=== PATIENT | female | born 1955 | race African-American/Black ===

== ENCOUNTER 2018-12-12 18:11 | Emergency (ER) | payer MEDICARE, MEDICAID ==
[~2018-12-12] VITALS: Ht 157.5 cm; Wt 76.0 kg
[~2018-12-12 18:11] MED LIST: GABA-529 PO; HYDR-519 PO; METF-414 PO
[2018-12-12 20:27] LABS: CHLORIDE 111 mEq/L (98-107)
[2018-12-12 20:28] LABS: BASOPHILS % 1.3 % (0.0-2.0); EOSINOPHILS % 0.4 % (0.0-5.0); HEMATOCRIT. 43.6 % (36.0-48.0); HEMOGLOBIN. 14.4 g/dL (12.0-16.0); MEAN CORPUSCULAR HEMOGLOBIN 29.7 pg (28.0-32.0); MEAN CORPUSCULAR VOLUME 90.2 fL (81.0-99.0); MEAN PLATELET VOLUME 9.8 fl (7.4-10.4); MONOCYTES % 7.5 % (2.0-8.0); NEUTROPHILS % 44.8 % (40.0-76.0); PLATELET 227 x1000/uL (130-400); RED BLOOD CELL COUNT 4.84 mill/uL (4.2-5.4); RED CELL DISTRIBUTION WIDTH 14.3 % (11.6-14.6)
[2018-12-12 20:37] LABS: CLARITY URINE CLOUDY (CLEAR); COLOR URINE YELLOW (YELLOW); KETONES URINE TRACE (NEGATIVE); LEUKOCYTE ESTERASE URINE 1+ (NEGATIVE); NITRITE URINE NEGATIVE (NEGATIVE); OCCULT BLOOD URINE NEGATIVE (NEGATIVE); PH URINE 5.5 (4.5-8.0); PROTEIN URINE NEGATIVE (NEGATIVE); SPECIFIC GRAVITY URINE 1.023 (1.005-1.030)
[2018-12-12 20:49] LABS: *AMPHETAMINES SCREEN URINE NEGATIVE (NEGATIVE); *BARBITURATES SCREEN URINE NEGATIVE (NEGATIVE); *BENZODIAZEPINES SCREEN URINE NEGATIVE (NEGATIVE); *COCAINE SCREEN URINE NEGATIVE (NEGATIVE); METHADONE URINE SCREEN NEGATIVE (NEGATIVE); OPIATES URINE SCREEN PRESUMTIVE POSITIVE (NEGATIVE)
[2018-12-12 20:50] LABS: CANNABINOID URINE SCREEN NEGATIVE (NEGATIVE); PHENCYCLIDINE URINE SCREEN NEGATIVE (NEGATIVE)
[2018-12-12] MEDS ORDERED: SULFAMETHOXAZOLE/TRIMETHOPRIM 800/160MG TABLET PO ONE (22:45)
[2018-12-12 23:25] VITALS: BP 142/80
== END 2018-12-12 23:29 | disposition home or self-care (01) ==
LOC: ER 18:11
DX: R53.1 Weakness (principal); M54.2 Cervicalgia; M79.602 Pain in left arm; I48.91 Unspecified atrial fibrillation; E11.9 Type 2 diabetes mellitus without complications; Z87.891 Personal history of nicotine dependence; Z90.710 Acquired absence of both cervix and uterus; Z88.6 Allergy status to analgesic agent; Z88.5 Allergy status to narcotic agent
CPT/HCPCS: 36415; 71045; 72040; 72100; 80305; 82962; 83605; 83880; 84484; 93005; 99284

== ENCOUNTER 2019-08-27 20:20 | Inpatient (IN) | payer MEDICARE, MEDICAID ==
[~2019-08-27] VITALS: Ht 157.5 cm; Wt 75.3 kg
[2019-08-27] MEDS ORDERED: SODIUM CHLORIDE 0.9% 1000ML BAG (SEPSIS BOLUS) IV ONE (22:00)
[2019-08-27] MEDS ORDERED: ONDANSETRON HCL 4MG/2ML INJ IV ONE (22:00)
[2019-08-27 22:32] LABS: BASOPHILS % 0.6 % (0.0-2.0); EOSINOPHILS % 0.1 % (0.0-5.0); HEMATOCRIT. 45.8 % (36.0-48.0); HEMOGLOBIN. 15.3 g/dL (12.0-16.0); LYMPHOCYTES % 35.3 % (20.0-50.0); MEAN CORPUSCULAR HEMOGLOBIN 29.8 pg (28.0-32.0); MEAN CORPUSCULAR VOLUME 89.4 fL (81.0-99.0); MEAN PLATELET VOLUME 8.9 fl (7.4-10.4); MONOCYTES % 14.1 % (2.0-8.0); NEUTROPHILS % 49.9 % (40.0-76.0); PLATELET 197 x1000/uL (130-400); RED BLOOD CELL COUNT 5.13 mill/uL (4.2-5.4); RED CELL DISTRIBUTION WIDTH 14.3 % (11.6-14.6)
[2019-08-27 22:35] LABS: CHLORIDE 107 mEq/L (98-107)
[2019-08-27 22:37] LABS: INR 0.9; PARTIAL THROMBOPLASTIN TIME 31.5 sec (23.4-31.0); PROTHROMBIN TIME 9.4 sec (9.6-11.0)
[2019-08-27] MEDS ORDERED: LEVOFLOXACIN 750MG PREMIX 150 ML IV ONE (23:30)
[2019-08-27] MEDS ORDERED: NITROGLYCERIN 0.4MG TABLET SL SL PRN (23:30)
[2019-08-28] VITALS (7 sets, daily range): BP systolic 97–144; BP diastolic 31–92
[2019-08-28 02:07] LABS: CLARITY URINE CLEAR (CLEAR); COLOR URINE YELLOW (YELLOW); KETONES URINE TRACE (NEGATIVE); LEUKOCYTE ESTERASE URINE 1+ (NEGATIVE); NITRITE URINE NEGATIVE (NEGATIVE); OCCULT BLOOD URINE NEGATIVE (NEGATIVE); PH URINE 5.5 (4.5-8.0); PROTEIN URINE NEGATIVE (NEGATIVE); SPECIFIC GRAVITY URINE 1.024 (1.005-1.030)
[2019-08-28] MEDS ORDERED: DIAZ5TAB PO (02:21)
[2019-08-28] MEDS ORDERED: IPRATROPIUM/ALBUTEROL 0.5-3(2.5)MG/3ML NEB NEB PRN (02:45)
[2019-08-28] MEDS ORDERED: GUAIFENESIN 200MG/10ML SUGAR FREE UDC PO PRN (02:45)
[2019-08-28] MEDS ORDERED: CLONIDINE 0.1MG TABLET PO PRN (02:45)
[2019-08-28] MEDS ORDERED: NA PHOS,M-B/NA PHOS,DI-BA ENEMA 118ML PR PRN (02:45)
[2019-08-28] MEDS ORDERED: DOCUSATE SODIUM 100MG CAPSULE PO PRN (02:45)
[2019-08-28] MEDS ORDERED: MAGNESIUM/ALUMINUM HYDROXIDE/SIMETHICONE 30ML UDC PO PRN (02:45)
[2019-08-28] MEDS ORDERED: ACETAMINOPHEN 325MG TABLET PO PRN (02:45)
[2019-08-28] MEDS ORDERED: ONDANSETRON HCL 4MG/2ML INJ IV PRN (02:45)
[2019-08-28] MEDS ORDERED: LORAZEPAM 2MG/ML CPJ IV PRN (02:45)
[2019-08-28] MEDS ORDERED: DEXTROSE 50% WATER 50ML SYRINGE IV PRN (03:00)
[2019-08-28] MEDS: MORPHINE SULFATE 2 MG/ML CPJ (NOT FOR IM USE) IV PRN ×3 (03:45→13:46)
[2019-08-28] MEDS: DEXT 5%/0.45% NACL KCL 10MEQ/L 1,000 ML IV SCH ×2 (04:31→17:04)
[2019-08-28] MEDS: BLOOD SUGAR DIAGNOSTIC STRIP TEST SCH ×4 (06:19→21:00)
[2019-08-28] MEDS: INSULIN LISPRO 100 UNITS/ML SUBCUT SCH ×4 (08:10→21:00)
[2019-08-28] MEDS: ENOXAPARIN 40MG/0.4ML SYR SUBCUT SCH (08:26)
[2019-08-28 11:25] LABS: CHLORIDE 111 mEq/L (98-107)
[2019-08-28] MEDS ORDERED: LEVOFLOXACIN 500MG PREMIX 100 ML IV SCH ×2 (15:15→21:00)
[2019-08-28] MEDS: DIPHENHYDRAMINE 50MG/ML VIAL IV PRN (18:08)
[2019-08-28] MEDS: HYDROCODONE/ACETAMINOPHEN 10/325MG TABLET PO PRN (18:21)
[2019-08-29] VITALS: BP 118/65
[2019-08-29] MEDS: DIPHENHYDRAMINE 50MG/ML VIAL IV PRN ×2 (00:02→06:02)
[2019-08-29] MEDS: HYDROCODONE/ACETAMINOPHEN 10/325MG TABLET PO PRN ×3 (00:24→11:56)
[2019-08-29 04:00] VITALS: BP 118/46
[2019-08-29] MEDS: DEXT 5%/0.45% NACL KCL 10MEQ/L 1,000 ML IV SCH (06:02)
[2019-08-29] MEDS: BLOOD SUGAR DIAGNOSTIC STRIP TEST SCH ×2 (07:40→11:57)
[2019-08-29 08:00] VITALS: BP 95/54
[2019-08-29] MEDS: INSULIN LISPRO 100 UNITS/ML SUBCUT SCH ×2 (08:10→11:57)
[2019-08-29 08:15] LABS: BASOPHILS % 0.6 % (0.0-2.0); EOSINOPHILS % 0.3 % (0.0-5.0); HEMATOCRIT. 40.4 % (36.0-48.0); HEMOGLOBIN. 13.1 g/dL (12.0-16.0); LYMPHOCYTES % 57.2 % (20.0-50.0); MEAN CORPUSCULAR HEMOGLOBIN 29.2 pg (28.0-32.0); MEAN CORPUSCULAR VOLUME 90.1 fL (81.0-99.0); MEAN PLATELET VOLUME 9.4 fl (7.4-10.4); MONOCYTES % 14.2 % (2.0-8.0); NEUTROPHILS % 27.7 % (40.0-76.0); PLATELET 158 x1000/uL (130-400); RED BLOOD CELL COUNT 4.49 mill/uL (4.2-5.4); RED CELL DISTRIBUTION WIDTH 14.2 % (11.6-14.6)
[2019-08-29 08:48] LABS: CHLORIDE 110 mEq/L (98-107)
[2019-08-29 08:57] LABS: LDL CHOLESTEROL 65 mg/dL (5-100)
[2019-08-29 08:59] LABS: T4 FREE 0.98 ng/dL (0.76-1.46)
[2019-08-29 09:01] LABS: HDL CHOLESTEROL 42 mg/dL (40-59)
[2019-08-29] MEDS: ENOXAPARIN 40MG/0.4ML SYR SUBCUT SCH (09:35)
[2019-08-29 09:45] VITALS: BP 101/57
[2019-08-29 12:00] VITALS: BP 101/57
== END 2019-08-29 14:15 | disposition home or self-care (01) | DRG 392 ==
LOC: ER 20:20 → 7WST 23:55 → ENRESERV 08-28 01:03
PROVIDERS: ADMIT Internal Medicine; ATTEND Internal Medicine
DX: K21.9 Gastro-esophageal reflux disease without esophagitis (principal); E11.9 Type 2 diabetes mellitus without complications; E87.6 Hypokalemia; F41.9 Anxiety disorder, unspecified; Z79.84 Long term (current) use of oral hypoglycemic drugs; Z79.899 Other long term (current) drug therapy; Z87.891 Personal history of nicotine dependence; Z88.6 Allergy status to analgesic agent; Z90.710 Acquired absence of both cervix and uterus; Z91.02 Food additives allergy status
CPT/HCPCS: 36415; 71045; 80048; 80053; 80061; 81003; 82962; 83605; 83880; 84145; 84439; 84443; 84484; 85025; 87804; 99285; J1200; J1650; J1956; J2270; J2405; J7030

== ENCOUNTER 2021-08-02 19:57 | Emergency (ER) | payer MEDICARE, MEDICAID ==
[~2021-08-02] VITALS: Ht 157.5 cm; Wt 80.0 kg
[~2021-08-02 19:57] MED LIST changes: +CYCL10TA7 PO; +DIAZ5TAB PO; +LIDO700A15 TP
[2021-08-02 23:25] VITALS: BP 158/73
== END 2021-08-02 23:30 | disposition home or self-care (01) ==
LOC: ER 19:57
DX: S93.402A Sprain of unspecified ligament of left ankle, initial encounter (principal); E11.9 Type 2 diabetes mellitus without complications; Z90.710 Acquired absence of both cervix and uterus; Z98.890 Other specified postprocedural states; Z79.899 Other long term (current) drug therapy; Z88.8 Allergy status to other drugs, medicaments and biological substances; W01.0XXA Fall on same level from slipping, tripping and stumbling without subsequent striking against object, initial encounter; Y93.89 Activity, other specified; Y92.89 Other specified places as the place of occurrence of the external cause; Y99.8 Other external cause status
CPT/HCPCS: 29515; 73610; 99283

== ENCOUNTER 2021-12-30 18:30 | Inpatient (IN) | payer MEDICARE, MEDICAID ==
[~2021-12-30] VITALS: Ht 157.5 cm; Wt 82.6 kg
[2021-12-30] MEDS ORDERED: NITROGLYCERIN 0.4MG TABLET SL SL PRN (19:15)
[2021-12-30] MEDS ORDERED: CLOPIDOGREL 75MG TABLET PO ONE (19:30)
[2021-12-30] MEDS ORDERED: ONDANSETRON HCL 4MG/2ML INJ IV STA (19:30)
[2021-12-30] MEDS ORDERED: MORPHINE SULFATE 4 MG/ML CPJ (NOT FOR IM USE) IV STA (19:30)
[2021-12-30 20:17] LABS: BASOPHILS % 0.9 % (0.0-2.0); EOSINOPHILS % 0.3 % (0.0-5.0); HEMATOCRIT. 44.7 % (36.0-48.0); LYMPHOCYTES % 42.2 % (20.0-50.0); MEAN CORPUSCULAR HEMOGLOBIN 28.5 pg (28.0-32.0); MEAN CORPUSCULAR VOLUME 84.8 fL (81.0-99.0); MEAN PLATELET VOLUME 9.5 fl (7.4-10.4); MONOCYTES % 7.4 % (2.0-8.0); NEUTROPHILS % 49.2 % (40.0-76.0); PLATELET 251 x1000/uL (130-400); RED BLOOD CELL COUNT 5.27 mill/uL (4.2-5.4)
[2021-12-30 20:25] LABS: CHLORIDE 110 mEq/L (98-107)
[2021-12-30 20:30] LABS: ETHANOL BLOOD 111 mg/dL
[2021-12-30] MEDS ORDERED: SODIUM CHLORIDE 0.9% 1000ML BAG (SEPSIS BOLUS) IV ONE (21:00)
[2021-12-30] MEDS ORDERED: AZITHROMYCIN 500MG/250ML 250 ML IV ONE (21:00)
[2021-12-30] MEDS ORDERED: CEFTRIAXONE 1 G PREMIX 50 ML IV ONE (21:00)
[2021-12-30 22:25] LABS: CLARITY URINE CLEAR (CLEAR); COLOR URINE YELLOW (YELLOW); KETONES URINE NEGATIVE (NEGATIVE); LEUKOCYTE ESTERASE URINE TRACE (NEGATIVE); NITRITE URINE NEGATIVE (NEGATIVE); OCCULT BLOOD URINE NEGATIVE (NEGATIVE); PROTEIN URINE NEGATIVE (NEGATIVE); SPECIFIC GRAVITY URINE 1.014 (1.005-1.030); UROBILINOGEN URINE 0.2 E.U./dL (0.2-1.0)
[2021-12-30 22:39] LABS: *AMPHETAMINES SCREEN URINE NEGATIVE (NEGATIVE); *BARBITURATES SCREEN URINE NEGATIVE (NEGATIVE); *BENZODIAZEPINES SCREEN URINE NEGATIVE (NEGATIVE); *COCAINE SCREEN URINE NEGATIVE (NEGATIVE); CANNABINOID URINE SCREEN NEGATIVE (NEGATIVE); METHADONE URINE SCREEN NEGATIVE (NEGATIVE); OPIATES URINE SCREEN PRESUMTIVE POSITIVE (NEGATIVE); PHENCYCLIDINE URINE SCREEN NEGATIVE (NEGATIVE)
[2021-12-30 22:53] LABS: D-DIMER 0.7 mg/L FEU (<0.50); PARTIAL THROMBOPLASTIN TIME 28.4 sec (23.4-31.0); PROTHROMBIN TIME 10.5 sec (9.6-11.0)
[2021-12-30] MEDS ORDERED: ENOXAPARIN 80MG/0.8ML SYR SUBCUT ONE (23:30)
[2021-12-31] MEDS ORDERED: NALOXONE HCL 0.4 MG/ML 1ML VIAL IV PRN (03:45)
[2021-12-31] MEDS: HYDROMORPHONE HCL/PF 2MG/ML CPJ IV PRN ×3 (03:59→17:43)
[2021-12-31] MEDS ORDERED: ACETAMINOPHEN 650MG/20.3ML UDC PO PRN (09:15)
[2021-12-31] MEDS ORDERED: HYDROCODONE/ACETAMINOPHEN 5/325MG TABLET PO PRN (09:15)
[2021-12-31 10:30] VITALS: BP 140/80
[2021-12-31] MEDS ORDERED: ACETAMINOPHEN 325MG TABLET PO PRN ×2 (13:30)
[2021-12-31] MEDS ORDERED: DOCUSATE SODIUM 100MG CAPSULE PO PRN (13:30)
[2021-12-31] MEDS ORDERED: LORAZEPAM 0.5MG TABLET PO PRN (13:30)
[2021-12-31] MEDS ORDERED: ONDANSETRON HCL 4MG/2ML INJ IV PRN (13:30)
[2021-12-31] MEDS ORDERED: IPRATROPIUM/ALBUTEROL 0.5-3(2.5)MG/3ML NEB HHN PRN (13:30)
[2021-12-31] MEDS ORDERED: DEXTROSE 50% WATER 50ML SYRINGE IV PRN (15:15)
[2021-12-31 16:00] VITALS: BP 127/70
[2021-12-31] MEDS: PREDNISONE 20MG TABLET PO SCH (17:36)
[2021-12-31] MEDS: BLOOD SUGAR DIAGNOSTIC STRIP TEST SCH ×2 (18:05→20:58)
[2021-12-31] MEDS: INSULIN LISPRO 100 UNITS/ML SUBCUT SCH ×2 (18:06→22:02)
[2021-12-31 20:00] VITALS: BP 113/68
[2021-12-31] MEDS: IPRATROPIUM/ALBUTEROL 0.5-3(2.5)MG/3ML NEB HHN SCH (20:51)
[2021-12-31] MEDS: GUAIFENESIN-DM 200MG-20MG/10ML UDC PO PRN (22:01)
[2022-01-01] VITALS: BP 114/60
[2022-01-01] MEDS: IPRATROPIUM/ALBUTEROL 0.5-3(2.5)MG/3ML NEB HHN SCH ×5 (01:07→21:32)
[2022-01-01 03:55] VITALS: BP 100/53
[2022-01-01] MEDS: GUAIFENESIN-DM 200MG-20MG/10ML UDC PO PRN (05:15)
[2022-01-01] MEDS: HYDROMORPHONE HCL/PF 2MG/ML CPJ IV PRN ×3 (05:37→20:32)
[2022-01-01 07:39] LABS: BASOPHILS % 0.1 % (0.0-2.0); HEMATOCRIT. 40.3 % (36.0-48.0); HEMOGLOBIN. 13.1 g/dL (12.0-16.0); LYMPHOCYTES % 13.5 % (20.0-50.0); MEAN CORPUSCULAR HEMOGLOBIN 27.8 pg (28.0-32.0); MEAN CORPUSCULAR VOLUME 85.2 fL (81.0-99.0); MEAN PLATELET VOLUME 9.4 fl (7.4-10.4); MONOCYTES % 4.9 % (2.0-8.0); NEUTROPHILS % 81.5 % (40.0-76.0); PLATELET 197 x1000/uL (130-400); RED BLOOD CELL COUNT 4.72 mill/uL (4.2-5.4); RED CELL DISTRIBUTION WIDTH 14.8 % (11.6-14.6)
[2022-01-01] MEDS: BLOOD SUGAR DIAGNOSTIC STRIP TEST SCH ×4 (07:40→21:44)
[2022-01-01 08:00] VITALS: BP 130/71
[2022-01-01 08:06] LABS: CHLORIDE 106 mEq/L (98-107)
[2022-01-01] MEDS: PREDNISONE 20MG TABLET PO SCH ×2 (08:33→17:52)
[2022-01-01] MEDS: DIPHENHYDRAMINE 25MG CAPSULE PO PRN (08:33)
[2022-01-01] MEDS: INSULIN LISPRO 100 UNITS/ML SUBCUT SCH ×4 (08:36→21:50)
[2022-01-01] MEDS ORDERED: POTASSIUM CHLORIDE 20MEQ/PACKET PO NR (10:00)
[2022-01-01 12:00] VITALS: BP 110/54
[2022-01-01 12:02] LABS: BG BASE EXCESS -1.9 mmol/L (-2.0-2.0); BG CARBOXYHEMOGLOBIN 0.2 % (0.5-1.5); BG DEOXYHEMOGLOBIN 1.9 % (0.0-5.0); BG FRACTION INSPIRED OXYGEN 28; BG HCO3 ACT 22.3 mmol/L (22.0-26.0); BG METHEMOGLOBIN 0.2 % (0.0-1.5); BG OXYGEN SATURATION 98.1 % (92.0-98.5); BG OXYHEMOGLOBIN 97.7 % (94.0-97.0); BG PCO2 36.2 mmHg (35.0-45.0); BG PH 7.407 (7.350-7.450); BG PO2 107.9 mmHg (75.0-100.0); BG SAMPLE SITE RIGHT RADIAL; BG TOTAL HEMOGLOBIN 13.6 g/dL (12.0-18.0); BG VENT MODE NASAL CANNULA
[2022-01-01 16:00] VITALS: BP 122/62
[2022-01-01 20:00] VITALS: BP 131/76
[2022-01-02] VITALS: BP 116/54
[2022-01-02] MEDS: IPRATROPIUM/ALBUTEROL 0.5-3(2.5)MG/3ML NEB HHN SCH ×6 (01:04→20:47)
[2022-01-02] MEDS: ACETYLCYSTEINE 100MG/ML 10% VIAL 4ML INH SCH (01:09)
[2022-01-02] MEDS: HYDROMORPHONE HCL/PF 2MG/ML CPJ IV PRN ×2 (02:44→09:37)
[2022-01-02 04:00] VITALS: BP 128/70
[2022-01-02] MEDS: BLOOD SUGAR DIAGNOSTIC STRIP TEST SCH ×4 (07:26→20:34)
[2022-01-02] MEDS: INSULIN LISPRO 100 UNITS/ML SUBCUT SCH ×4 (07:27→20:37)
[2022-01-02 08:00] VITALS: BP 123/70
[2022-01-02] MEDS: PREDNISONE 20MG TABLET PO SCH ×2 (08:42→17:34)
[2022-01-02 12:00] VITALS: BP 126/74
[2022-01-02] MEDS: OXYCODONE HCL/ACETAMINOPHEN 5/325MG TABLET PO PRN ×2 (15:29→21:41)
[2022-01-02 16:00] VITALS: BP 130/64
[2022-01-02 20:00] VITALS: BP 109/54
[2022-01-02] MEDS: DEXAMETHASONE 4MG/ML 1ML VIAL IV SCH (23:21)
[2022-01-03] VITALS (38 sets, daily range): BP systolic 94–158; BP diastolic 51–90
[2022-01-03] MEDS: IPRATROPIUM/ALBUTEROL 0.5-3(2.5)MG/3ML NEB HHN SCH ×5 (01:09→16:00)
[2022-01-03] MEDS: HYDROMORPHONE HCL/PF 2MG/ML CPJ IV PRN ×3 (03:25→17:07)
[2022-01-03] MEDS: BLOOD SUGAR DIAGNOSTIC STRIP TEST SCH ×3 (06:17→21:00)
[2022-01-03] MEDS: DEXAMETHASONE 4MG/ML 1ML VIAL IV SCH ×3 (06:39→17:06)
[2022-01-03 07:24] LABS: BASOPHILS % 0.3 % (0.0-2.0); HEMATOCRIT. 40.1 % (36.0-48.0); HEMOGLOBIN. 13.1 g/dL (12.0-16.0); LYMPHOCYTES % 8.2 % (20.0-50.0); MEAN CORPUSCULAR HEMOGLOBIN 27.9 pg (28.0-32.0); MEAN CORPUSCULAR VOLUME 85.5 fL (81.0-99.0); MEAN PLATELET VOLUME 9.3 fl (7.4-10.4); MONOCYTES % 1.9 % (2.0-8.0); NEUTROPHILS % 89.6 % (40.0-76.0); PLATELET 215 x1000/uL (130-400); RED CELL DISTRIBUTION WIDTH 14.9 % (11.6-14.6)
[2022-01-03] MEDS ORDERED: LIDOCAINE HCL/PF 1% 10 MG/ML 5ML VIAL ONE (07:31)
[2022-01-03 07:40] LABS: CHLORIDE 103 mEq/L (98-107)
[2022-01-03 07:44] LABS: PHOSPHORUS 3.6 mg/dL (2.5-4.9)
[2022-01-03] MEDS: INSULIN LISPRO 100 UNITS/ML SUBCUT SCH ×4 (08:10→22:05)
[2022-01-03] MEDS: ACETYLCYSTEINE 100MG/ML 10% VIAL 4ML INH SCH ×2 (08:34→15:52)
[2022-01-03] MEDS: PREDNISONE 20MG TABLET PO SCH ×2 (09:00→16:15)
[2022-01-03] MEDS ORDERED: SODIUM POLYSTYRENE SULFONATE 15 G/60 ML BOT PO NR (10:30)
[2022-01-03] MEDS ORDERED: DEXTROSE 50% WATER 50ML SYRINGE IV NR (10:45)
[2022-01-03] MEDS ORDERED: INSULIN REGULAR (HUMULIN R) 300UNITS/3ML VIAL IV NR (10:45)
[2022-01-03] MEDS ORDERED: BACITRACIN 15GM TUBE TOP ONE (11:14)
[2022-01-03] MEDS ORDERED: LIDOCAINE HCL/EPINEPHRINE 1%-EPI 1:100,000 20 ML VIAL ONE (11:14)
[2022-01-03] MEDS ORDERED: GENTAMICIN SULF 40MG/ML 2ML VIAL ONE (11:14)
[2022-01-03] MEDS ORDERED: THROMBIN (BOVINE) 5000 UNITS/VIAL TOP ONE (11:14)
[2022-01-03] MEDS ORDERED: PROPOFOL 200MG/20ML VIAL IV ONE ×2 (12:33→13:03)
[2022-01-03] MEDS ORDERED: DEXAMETHASONE 4MG/ML 1ML VIAL ONE (12:33)
[2022-01-03] MEDS ORDERED: ONDANSETRON HCL 4MG/2ML INJ ONE (12:33)
[2022-01-03] MEDS ORDERED: ROCURONIUM BROMIDE 10MG/ML VIAL 5ML IV ONE (12:33)
[2022-01-03] MEDS ORDERED: SUCCINYLCHOLINE CHLORIDE 200MG/10ML IV ONE ×2 (12:33→12:38)
[2022-01-03] MEDS ORDERED: LIDOCAINE HCL 1% 50ML VIAL (10MG/ML) ONE (12:33)
[2022-01-03] MEDS ORDERED: MIDAZOLAM HCL 2 MG/2 ML VIAL ONE (12:34)
[2022-01-03] MEDS ORDERED: FENTANYL CITRATE/PF 50MCG/ML 2ML VIAL ONE ×2 (12:34→13:03)
[2022-01-03] MEDS ORDERED: EPHEDRINE SULFATE 50MG/ML VIAL ONE ×2 (13:15→14:26)
[2022-01-03] MEDS ORDERED: HYDROMORPHONE HCL/PF 2MG/ML CPJ ONE (13:24)
[2022-01-03] MEDS ORDERED: HYDRALAZINE 20MG/ML VIAL ONE (14:26)
[2022-01-03] MEDS ORDERED: LABETALOL HCL 5MG/ML VIAL 20ML IV ONE (14:26)
[2022-01-03] MEDS ORDERED: CEFAZOLIN SODIUM 1000MG/VIAL ONE (14:34)
[2022-01-03] MEDS ORDERED: GLYCOPYRROLATE 0.2 MG/ML 2ML VIAL ONE ×3 (14:35→14:40)
[2022-01-03] MEDS ORDERED: NEOSTIGMINE METHYLSULFATE 1MG/ML 10 ML VIAL ONE (14:35)
[2022-01-03] MEDS ORDERED: NICARDIPINE 100 MG in SODIUM CHLORIDE 0.9% 60 ML IV PRN (14:45)
[2022-01-03] MEDS: DEXT 5%/LACTATED RINGERS 1,000 ML IV SCH (15:26)
[2022-01-03] MEDS: MORPHINE SULFATE 4 MG/ML CPJ (NOT FOR IM USE) IV PRN ×3 (15:43→23:42)
[2022-01-03] MEDS ORDERED: CEFAZOLIN SODIUM 1000MG/VIAL IV SCH (22:00)
[2022-01-03] MEDS: CEFAZOLIN 1000MG PREMIX 50 ML IV SCH (23:30)
[2022-01-04] VITALS (36 sets, daily range): BP systolic 95–154; BP diastolic 31–83
[2022-01-04] MEDS: IPRATROPIUM/ALBUTEROL 0.5-3(2.5)MG/3ML NEB HHN SCH ×4 (00:17→20:47)
[2022-01-04] MEDS: ACETYLCYSTEINE 100MG/ML 10% VIAL 4ML INH SCH ×2 (00:17→09:23)
[2022-01-04] MEDS: DEXAMETHASONE 4MG/ML 1ML VIAL IV SCH ×4 (01:00→18:44)
[2022-01-04] MEDS: DEXT 5%/LACTATED RINGERS 1,000 ML IV SCH ×3 (01:25→21:15)
[2022-01-04] MEDS: MORPHINE SULFATE 4 MG/ML CPJ (NOT FOR IM USE) IV PRN ×4 (01:25→10:18)
[2022-01-04 05:40] LABS: BASOPHILS % 0.1 % (0.0-2.0); HEMATOCRIT. 41.8 % (36.0-48.0); HEMOGLOBIN. 13.5 g/dL (12.0-16.0); LYMPHOCYTES % 8.8 % (20.0-50.0); MEAN CORPUSCULAR HEMOGLOBIN 27.9 pg (28.0-32.0); MEAN CORPUSCULAR VOLUME 86.3 fL (81.0-99.0); MEAN PLATELET VOLUME 9.2 fl (7.4-10.4); MONOCYTES % 7.7 % (2.0-8.0); NEUTROPHILS % 83.4 % (40.0-76.0); PLATELET 238 x1000/uL (130-400); RED BLOOD CELL COUNT 4.85 mill/uL (4.2-5.4)
[2022-01-04 06:04] LABS: CHLORIDE 103 mEq/L (98-107)
[2022-01-04] MEDS: CEFAZOLIN 1000MG PREMIX 50 ML IV SCH ×3 (06:19→21:32)
[2022-01-04] MEDS: BLOOD SUGAR DIAGNOSTIC STRIP TEST SCH ×4 (06:28→21:15)
[2022-01-04] MEDS: INSULIN LISPRO 100 UNITS/ML SUBCUT SCH ×4 (06:29→21:34)
[2022-01-04] MEDS: PREDNISONE 20MG TABLET PO SCH ×2 (07:53→18:44)
[2022-01-04] MEDS ORDERED: THROAT LOZENGES-BENZOCAINE/MENTH/CETYLPYRD CL LOZENGES MM PRN (10:30)
[2022-01-04] MEDS: HYDROMORPHONE HCL/PF 2MG/ML CPJ IV PRN ×2 (13:29→21:10)
[2022-01-04] MEDS: DIPHENHYDRAMINE 25MG CAPSULE PO PRN (15:41)
[2022-01-04] MEDS: METOPROLOL TARTRATE 25MG TABLET PO SCH (21:11)
[2022-01-05] VITALS: BP 139/65
[2022-01-05] MEDS: ACETYLCYSTEINE 100MG/ML 10% VIAL 4ML INH SCH ×3 (01:05→16:26)
[2022-01-05] MEDS: IPRATROPIUM/ALBUTEROL 0.5-3(2.5)MG/3ML NEB HHN SCH ×6 (01:05→20:05)
[2022-01-05] MEDS: HYDROMORPHONE HCL/PF 2MG/ML CPJ IV PRN (01:24)
[2022-01-05 04:00] VITALS: BP 144/71
[2022-01-05] MEDS: MORPHINE SULFATE 4 MG/ML CPJ (NOT FOR IM USE) IV PRN ×2 (06:01→08:38)
[2022-01-05] MEDS: DEXT 5%/LACTATED RINGERS 1,000 ML IV SCH ×2 (06:02→16:45)
[2022-01-05] MEDS: BLOOD SUGAR DIAGNOSTIC STRIP TEST SCH ×4 (06:56→21:00)
[2022-01-05 08:00] VITALS: BP 173/76
[2022-01-05 08:21] LABS: HEMATOCRIT. 41.9 % (36.0-48.0); HEMOGLOBIN. 13.7 g/dL (12.0-16.0); LYMPHOCYTES % 9.1 % (20.0-50.0); MEAN CORPUSCULAR VOLUME 85.5 fL (81.0-99.0); MEAN PLATELET VOLUME 9.2 fl (7.4-10.4); MONOCYTES % 8.1 % (2.0-8.0); NEUTROPHILS % 82.8 % (40.0-76.0); PLATELET 230 x1000/uL (130-400)
[2022-01-05 08:29] LABS: CHLORIDE 99 mEq/L (98-107)
[2022-01-05] MEDS: PREDNISONE 20MG TABLET PO SCH ×2 (08:39→17:33)
[2022-01-05] MEDS: METOPROLOL TARTRATE 25MG TABLET PO SCH ×2 (08:39→22:17)
[2022-01-05] MEDS: INSULIN LISPRO 100 UNITS/ML SUBCUT SCH ×4 (08:48→22:38)
[2022-01-05] MEDS: DIPHENHYDRAMINE 25MG CAPSULE PO PRN (11:06)
[2022-01-05] MEDS: CLONIDINE 0.1MG TABLET PO PRN (11:29)
[2022-01-05] MEDS: OXYCODONE HCL/ACETAMINOPHEN 5/325MG TABLET PO PRN ×3 (11:29→22:34)
[2022-01-05 12:00] VITALS: BP 195/88
[2022-01-05 16:00] VITALS: BP 125/70
[2022-01-05] MEDS ORDERED: NALOXONE HCL 0.4MG/ML VIAL IV PRN (17:45)
[2022-01-05 20:00] VITALS: BP 115/67
[2022-01-06] VITALS: BP 124/67
[2022-01-06] MEDS: ACETYLCYSTEINE 100MG/ML 10% VIAL 4ML INH SCH ×3 (00:54→17:24)
[2022-01-06] MEDS: IPRATROPIUM/ALBUTEROL 0.5-3(2.5)MG/3ML NEB HHN SCH ×6 (00:54→21:00)
[2022-01-06] MEDS: DEXT 5%/LACTATED RINGERS 1,000 ML IV SCH ×3 (02:55→23:50)
[2022-01-06] MEDS: MORPHINE SULFATE 4 MG/ML CPJ (NOT FOR IM USE) IV PRN ×3 (03:49→23:49)
[2022-01-06 04:11] VITALS: BP 144/61
[2022-01-06] MEDS: OXYCODONE HCL/ACETAMINOPHEN 5/325MG TABLET PO PRN ×2 (06:34→17:39)
[2022-01-06] MEDS: BLOOD SUGAR DIAGNOSTIC STRIP TEST SCH ×4 (07:42→21:04)
[2022-01-06 08:00] VITALS: BP 102/60
[2022-01-06] MEDS: PREDNISONE 20MG TABLET PO SCH ×2 (08:46→17:39)
[2022-01-06] MEDS: METOPROLOL TARTRATE 25MG TABLET PO SCH ×2 (08:47→21:04)
[2022-01-06] MEDS: INSULIN LISPRO 100 UNITS/ML SUBCUT SCH ×4 (08:57→21:20)
[2022-01-06 10:40] LABS: BASOPHILS % 0.1 % (0.0-2.0); EOSINOPHILS % 0.1 % (0.0-5.0); HEMATOCRIT. 41.1 % (36.0-48.0); HEMOGLOBIN. 13.3 g/dL (12.0-16.0); LYMPHOCYTES % 28.6 % (20.0-50.0); MEAN CORPUSCULAR HEMOGLOBIN 27.7 pg (28.0-32.0); MEAN CORPUSCULAR VOLUME 85.9 fL (81.0-99.0); MEAN PLATELET VOLUME 9.1 fl (7.4-10.4); NEUTROPHILS % 60.2 % (40.0-76.0); PLATELET 180 x1000/uL (130-400); RED BLOOD CELL COUNT 4.78 mill/uL (4.2-5.4)
[2022-01-06 10:47] LABS: CHLORIDE 101 mEq/L (98-107)
[2022-01-06 12:00] VITALS: BP 109/64
[2022-01-06 16:00] VITALS: BP 140/71
[2022-01-06 20:00] VITALS: BP 149/80
[2022-01-06] MEDS: DIPHENHYDRAMINE 25MG CAPSULE PO PRN (21:13)
[2022-01-07] VITALS: BP 142/77
[2022-01-07] MEDS: ACETYLCYSTEINE 100MG/ML 10% VIAL 4ML INH SCH ×4 (00:26→15:37)
[2022-01-07] MEDS: IPRATROPIUM/ALBUTEROL 0.5-3(2.5)MG/3ML NEB HHN SCH ×5 (01:01→21:01)
[2022-01-07] MEDS: OXYCODONE HCL/ACETAMINOPHEN 5/325MG TABLET PO PRN ×3 (02:49→21:08)
[2022-01-07] MEDS: MORPHINE SULFATE 4 MG/ML CPJ (NOT FOR IM USE) IV PRN ×3 (06:43→19:02)
[2022-01-07] MEDS: BLOOD SUGAR DIAGNOSTIC STRIP TEST SCH ×4 (07:54→21:50)
[2022-01-07] MEDS: METOPROLOL TARTRATE 25MG TABLET PO SCH (08:20)
[2022-01-07] MEDS: PREDNISONE 20MG TABLET PO SCH (08:21)
[2022-01-07] MEDS: DEXT 5%/LACTATED RINGERS 1,000 ML IV SCH (08:25)
[2022-01-07 08:26] VITALS: BP 150/80
[2022-01-07] MEDS: INSULIN LISPRO 100 UNITS/ML SUBCUT SCH ×4 (09:04→21:46)
[2022-01-07 12:27] VITALS: BP 168/85
[2022-01-07] MEDS: DIPHENHYDRAMINE 25MG CAPSULE PO PRN (13:14)
[2022-01-07] MEDS: CLONIDINE 0.1MG TABLET PO PRN (13:14)
[2022-01-07] MEDS ORDERED: HYDRALAZINE 10 MG in SODIUM CHLORIDE 0.9% 49.5 ML IV PRN (15:45)
[2022-01-07] MEDS ORDERED: HYDRALAZINE 20MG/ML VIAL IV PRN (15:45)
[2022-01-07] MEDS: AMLODIPINE 10MG TABLET PO SCH (15:55)
[2022-01-07] MEDS: PANTOPRAZOLE 40MG DR TABLET PO SCH (15:55)
[2022-01-07 16:00] VITALS: BP 122/66
[2022-01-07] MEDS ORDERED: HYDROCODONE/ACETAMINOPHEN 5/325MG TABLET PO PRN (18:30)
[2022-01-07 20:00] VITALS: BP 127/66
[2022-01-07] MEDS: ISOSORBIDE MONONITRATE 30MG TABLET SR 24HR PO SCH (21:07)
[2022-01-08] VITALS: BP 112/61
[2022-01-08] MEDS: IPRATROPIUM/ALBUTEROL 0.5-3(2.5)MG/3ML NEB HHN SCH ×6 (00:26→20:53)
[2022-01-08 04:00] VITALS: BP 158/70
[2022-01-08] MEDS: OXYCODONE HCL/ACETAMINOPHEN 5/325MG TABLET PO PRN ×3 (05:37→18:45)
[2022-01-08] MEDS: BLOOD SUGAR DIAGNOSTIC STRIP TEST SCH ×4 (07:47→21:00)
[2022-01-08] MEDS: INSULIN LISPRO 100 UNITS/ML SUBCUT SCH ×4 (07:50→22:09)
[2022-01-08 08:00] VITALS: BP 152/74
[2022-01-08] MEDS: DIPHENHYDRAMINE 25MG CAPSULE PO PRN (08:46)
[2022-01-08] MEDS: PANTOPRAZOLE 40MG DR TABLET PO SCH (08:46)
[2022-01-08] MEDS: AMLODIPINE 10MG TABLET PO SCH (09:54)
[2022-01-08] MEDS: PREDNISONE 20MG TABLET PO SCH (09:54)
[2022-01-08 12:00] VITALS: BP 148/99
[2022-01-08] MEDS ORDERED: ISOS30TA91 PO (15:05)
[2022-01-08] MEDS ORDERED: PANT40TA51 MT (15:05)
[2022-01-08] MEDS ORDERED: HYDR-4001 MT (15:05)
[2022-01-08] MEDS ORDERED: P20 PO (15:05)
[2022-01-08] MEDS ORDERED: AMLO10TA80 PO (15:05)
[2022-01-08] MEDS: DEXT 5%/LACTATED RINGERS 1,000 ML IV SCH (15:13)
[2022-01-08 16:00] VITALS: BP 113/62
[2022-01-08] MEDS: ISOSORBIDE MONONITRATE 30MG TABLET SR 24HR PO SCH (22:05)
[2022-01-08] MEDS: FAMOTIDINE 20MG TABLET PO SCH (22:06)
[2022-01-09] VITALS: BP 129/81
[2022-01-09] MEDS: IPRATROPIUM/ALBUTEROL 0.5-3(2.5)MG/3ML NEB HHN SCH ×3 (00:23→08:56)
[2022-01-09] MEDS: OXYCODONE HCL/ACETAMINOPHEN 5/325MG TABLET PO PRN ×2 (01:27→08:37)
[2022-01-09 04:00] VITALS: BP 102/56
[2022-01-09] MEDS: BLOOD SUGAR DIAGNOSTIC STRIP TEST SCH (05:56)
[2022-01-09 08:00] VITALS: BP 120/58
[2022-01-09] MEDS: FAMOTIDINE 20MG TABLET PO SCH (08:36)
[2022-01-09] MEDS: AMLODIPINE 10MG TABLET PO SCH (08:36)
[2022-01-09] MEDS: PREDNISONE 20MG TABLET PO SCH (08:36)
[2022-01-09] MEDS: DIPHENHYDRAMINE 25MG CAPSULE PO PRN (08:43)
[2022-01-09] MEDS: INSULIN LISPRO 100 UNITS/ML SUBCUT SCH (08:54)
[2022-01-09 09:42] VITALS: BP 120/58
== END 2022-01-09 10:37 | disposition home health service (06) | DRG 471 ==
LOC: ER 18:30 → MICUSO 20:57 → 7WST 12-31 09:55 → MICUSO 01-03 15:23 → 6EST 01-04 10:46
PROVIDERS: ADMIT Internal Medicine; ATTEND Internal Medicine
PROC: 0RG20A0 Fusion of 2 or more Cervical Vertebral Joints with Interbody Fusion Device, Anterior Approach, Anterior Column, Open Approach (ICD-10-PCS; principal; 2022-01-03)
PROC: 01N10ZZ Release Cervical Nerve, Open Approach (ICD-10-PCS; 2022-01-03)
PROC: 0RT30ZZ Resection of Cervical Vertebral Disc, Open Approach (ICD-10-PCS; 2022-01-03)
PROC: 00NW0ZZ Release Cervical Spinal Cord, Open Approach (ICD-10-PCS; 2022-01-03)
PROC: 05HY33Z Insertion of Infusion Device into Upper Vein, Percutaneous Approach (ICD-10-PCS; 2022-01-03)
PROC: B54NZZA Ultrasonography of Left Upper Extremity Veins, Guidance (ICD-10-PCS; 2022-01-03)
DX: M47.12 Other spondylosis with myelopathy, cervical region (principal); G82.50 Quadriplegia, unspecified; J84.9 Interstitial pulmonary disease, unspecified; E87.2 Acidosis; J96.11 Chronic respiratory failure with hypoxia; J98.11 Atelectasis; M48.02 Spinal stenosis, cervical region; E11.42 Type 2 diabetes mellitus with diabetic polyneuropathy; E78.5 Hyperlipidemia, unspecified; Z20.822 Contact with and (suspected) exposure to COVID-19; E87.5 Hyperkalemia; E87.6 Hypokalemia; U09.9 Post COVID-19 condition, unspecified; J44.9 Chronic obstructive pulmonary disease, unspecified; F17.210 Nicotine dependence, cigarettes, uncomplicated; F10.929 Alcohol use, unspecified with intoxication, unspecified; M79.89 Other specified soft tissue disorders; Y90.5 Blood alcohol level of 100-119 mg/100 ml; E11.65 Type 2 diabetes mellitus with hyperglycemia; I11.9 Hypertensive heart disease without heart failure; R74.01 Elevation of levels of liver transaminase levels; M54.10 Radiculopathy, site unspecified; I25.10 Atherosclerotic heart disease of native coronary artery without angina pectoris; Z88.6 Allergy status to analgesic agent; Z90.710 Acquired absence of both cervix and uterus; Z99.81 Dependence on supplemental oxygen; Z71.6 Tobacco abuse counseling; Z79.899 Other long term (current) drug therapy; Z88.5 Allergy status to narcotic agent; Z88.8 Allergy status to other drugs, medicaments and biological substances; Z91.018 Allergy to other foods
CPT/HCPCS: 36415; 36573; 36600; 71045; 72040; 72141; 72146; 72148; 76000; 78582; 80048; 80053; 80061; 80076; 80305; 80320; 81003; 82375; 82805; 82962; 83036; 83605; 83735; 83880; 84100; 84132; 84145; 84484; 85025; 85379; 86850; 86900; 87426; 88304; 88311; 93005; 93306; 93970; 94640; 97116; 97162; 97166; 97530; 99291; A9558; C1713; C1725; J0330; J0360; J0456; J0690; J0696; J1100; J1170; J1580; J1650; J1815; J2250; J2270; J2405; J2704; J2710; J3010; J3490; J7030; J7050; J7121; J7512; J7608; L0172; Q0163; C1762; G0480

== ENCOUNTER 2022-10-04 10:50 | Inpatient (IN) | payer MEDICARE, MEDICAID ==
[~2022-10-04] VITALS: Ht 157.5 cm; Wt 88.9 kg
[~2022-10-04 10:50] MED LIST changes: +AMLO10TA80 PO; +CYCL10TA21 PO; -CYCL10TA7 PO; -HYDR-519 PO; +ISOS30TA91 PO; +P20 PO; +PANT40TA51 MT
[2022-10-04 11:51] LABS: BASOPHILS % 0.7 % (0.0-2.0); EOSINOPHILS % 0.3 % (0.0-5.0); HEMOGLOBIN. 14.9 g/dL (12.0-16.0); LYMPHOCYTES % 37.4 % (20.0-50.0); MEAN CORPUSCULAR HEMOGLOBIN 29.2 pg (28.0-32.0); MEAN CORPUSCULAR VOLUME 88.5 fL (81.0-99.0); MEAN PLATELET VOLUME 8.4 fl (7.4-10.4); MONOCYTES % 6.9 % (2.0-8.0); NEUTROPHILS % 54.7 % (40.0-76.0); PLATELET 269 x1000/uL (130-400); RED BLOOD CELL COUNT 5.08 mill/uL (4.2-5.4); RED CELL DISTRIBUTION WIDTH 13.8 % (11.6-14.6)
[2022-10-04 12:00] LABS: PROTHROMBIN TIME 10.3 sec (9.6-11.0)
[2022-10-04 12:03] LABS: CHLORIDE 107 mEq/L (98-107)
[2022-10-04] MEDS ORDERED: METHYLPREDNISOLONE SOD SUCC 125 MG/2 ML VIAL IV STA (15:13)
[2022-10-04] MEDS ORDERED: IPRATROPIUM BROMIDE (0.02%) 0.5MG/2.5ML NEB HHN STA (15:13)
[2022-10-04] MEDS ORDERED: ALBUTEROL (0.083%) 2.5MG/3ML NEB HHN STA (15:13)
[2022-10-04] MEDS ORDERED: CEFTRIAXONE 1 G PREMIX 50 ML IV ONE (15:15)
[2022-10-04] MEDS ORDERED: AZITHROMYCIN 500MG/250ML 250 ML IV ONE (15:15)
[2022-10-04] MEDS ORDERED: SODIUM CHLORIDE 0.9% 1000ML BAG (SEPSIS BOLUS) IV ONE (15:15)
[2022-10-04] MEDS ORDERED: OSELTAMIVIR 75MG CAPSULE PO ONE (15:45)
[2022-10-04] MEDS ORDERED: ALBUTEROL (0.083%) 2.5MG/3ML NEB ONE (17:43)
[2022-10-04] MEDS ORDERED: IPRATROPIUM BROMIDE (0.02%) 0.5MG/2.5ML NEB ONE (17:43)
[2022-10-04] MEDS ORDERED: AZITHROMYCIN 500MG/250ML 250 ML IV NR (18:30)
[2022-10-04] MEDS ORDERED: OSELTAMIVIR 75MG CAPSULE PO NR (18:30)
[2022-10-04] MEDS ORDERED: METHYLPREDNISOLONE SOD SUCC 125 MG/2 ML VIAL IV NR (18:30)
[2022-10-04] MEDS ORDERED: CEFTRIAXONE 1 G PREMIX 50 ML IV NR (18:30)
[2022-10-04] MEDS ORDERED: ONDANSETRON HCL 4MG/2ML INJ IV PRN (20:45)
[2022-10-04] MEDS ORDERED: ACETAMINOPHEN 325MG TABLET PO PRN ×2 (20:45)
[2022-10-04] MEDS ORDERED: CLONIDINE 0.1MG TABLET PO PRN (20:45)
[2022-10-04] MEDS ORDERED: IPRATROPIUM/ALBUTEROL 0.5-3(2.5)MG/3ML NEB HHN PRN (20:45)
[2022-10-04] MEDS ORDERED: GUAIFENESIN 200MG/10ML SUGAR FREE UDC PO PRN (20:45)
[2022-10-04] MEDS ORDERED: DEXTROSE 50% WATER 50ML SYRINGE IV PRN (21:00)
[2022-10-04] MEDS: INSULIN LISPRO 100 UNITS/ML SUBCUT SCH (21:11)
[2022-10-04] MEDS: BLOOD SUGAR DIAGNOSTIC STRIP TEST SCH (21:16)
[2022-10-04] MEDS ORDERED: TIZANIDINE HCL 2MG TABLET PO PRN (21:30)
[2022-10-04 23:10] VITALS: BP 153/75
[2022-10-04] MEDS ORDERED: IPRATROPIUM BROMIDE (0.02%) 0.5MG/2.5ML NEB HHN PRN (23:15)
[2022-10-04] MEDS ORDERED: ALBUTEROL (0.083%) 2.5MG/3ML NEB HHN PRN (23:15)
[2022-10-04] MEDS: GABAPENTIN 300MG CAPSULE PO SCH (23:26)
[2022-10-05] VITALS (7 sets, daily range): BP systolic 106–153; BP diastolic 64–75
[2022-10-05] MEDS ORDERED: HYDROCODONE/ACETAMINOPHEN 5/325MG TABLET PO PRN (01:15)
[2022-10-05] MEDS: OXYCODONE HCL/ACETAMINOPHEN 5/325MG TABLET PO PRN ×2 (02:40→09:06)
[2022-10-05] MEDS: GABAPENTIN 300MG CAPSULE PO SCH ×3 (05:31→18:13)
[2022-10-05] MEDS: INSULIN LISPRO 100 UNITS/ML SUBCUT SCH ×2 (06:01→22:27)
[2022-10-05] MEDS: BLOOD SUGAR DIAGNOSTIC STRIP TEST SCH ×4 (06:01→21:17)
[2022-10-05] MEDS: METFORMIN HCL 500MG TABLET PO SCH ×3 (07:10→17:11)
[2022-10-05] MEDS: DULOXETINE HCL 30MG DR CAPSULE PO SCH (08:19)
[2022-10-05] MEDS: AMLODIPINE 10MG TABLET PO SCH (08:19)
[2022-10-05] MEDS: ENOXAPARIN 40MG/0.4ML SYR SUBCUT SCH (08:20)
[2022-10-05] MEDS ORDERED: METFORMIN HCL 500MG TABLET PO SCH (09:00)
[2022-10-05 11:16] LABS: CLARITY URINE CLEAR (CLEAR); COLOR URINE YELLOW (YELLOW); KETONES URINE NEGATIVE (NEGATIVE); LEUKOCYTE ESTERASE URINE NEGATIVE (NEGATIVE); NITRITE URINE NEGATIVE (NEGATIVE); OCCULT BLOOD URINE NEGATIVE (NEGATIVE); PH URINE 5.5 (4.5-8.0); PROTEIN URINE NEGATIVE (NEGATIVE); SPECIFIC GRAVITY URINE 1.023 (1.005-1.030); UROBILINOGEN URINE 0.2 E.U./dL (0.2-1.0)
[2022-10-05 11:27] LABS: *AMPHETAMINES SCREEN URINE NEGATIVE (NEGATIVE); *BARBITURATES SCREEN URINE NEGATIVE (NEGATIVE); *BENZODIAZEPINES SCREEN URINE NEGATIVE (NEGATIVE); *COCAINE SCREEN URINE NEGATIVE (NEGATIVE); CANNABINOID URINE SCREEN NEGATIVE (NEGATIVE); METHADONE URINE SCREEN NEGATIVE (NEGATIVE); OPIATES URINE SCREEN NEGATIVE (NEGATIVE); PHENCYCLIDINE URINE SCREEN NEGATIVE (NEGATIVE)
[2022-10-05] MEDS ORDERED: IPRATROPIUM/ALBUTEROL 0.5-3(2.5)MG/3ML NEB HHN SCH (12:00)
[2022-10-05] MEDS ORDERED: METHYLPREDNISOLONE SOD SUCC 40 MG/ML VIAL IV SCH (12:00)
[2022-10-05] MEDS: TIZANIDINE HCL 2MG TABLET PO SCH ×2 (12:26→18:13)
[2022-10-05] MEDS: BENZONATATE 100MG CAPSULE PO SCH ×2 (12:26→21:15)
[2022-10-05] MEDS: DULOXETINE HCL 60MG DR CAPSULE PO SCH (12:26)
[2022-10-05] MEDS: IPRATROPIUM BROMIDE (0.02%) 0.5MG/2.5ML NEB HHN SCH ×2 (13:14→20:18)
[2022-10-05] MEDS ORDERED: OXYCODONE HCL/ACETAMINOPHEN 5/325MG TABLET PO SCH (13:30)
[2022-10-05] MEDS: ACETYLCYSTEINE 200MG/ML 20% VIAL 4ML INH SCH (15:13)
[2022-10-05] MEDS: ALBUTEROL (0.083%) 2.5MG/3ML NEB HHN SCH ×2 (15:14→20:18)
[2022-10-05] MEDS ORDERED: OXYCODONE HCL/ACETAMINOPHEN 5/325MG TABLET PO NR (16:15)
[2022-10-05] MEDS ORDERED: NALOXONE HCL 0.4MG/ML VIAL IV PRN (16:30)
[2022-10-05] MEDS: DEXT 5% IV SCH (17:10)
[2022-10-05] MEDS: CEFTRIAXONE IV SCH (17:10)
[2022-10-05] MEDS: WATER IV SCH (17:10)
[2022-10-05] MEDS ORDERED: AZITHROMYCIN 250 MG in DEXT 5% WATER 250 ML IV SCH (18:00)
[2022-10-05] MEDS: AZITHROMYCIN 250 MG in DEXT 5% WATER 250 ML IV SCH (18:13)
[2022-10-05] MEDS: ACETAMINOPHEN 325MG TABLET PO SCH (21:15)
[2022-10-05] MEDS: OXYCODONE HCL 5MG TABLET PO SCH (21:16)
[2022-10-05] MEDS: FAMOTIDINE 20MG TABLET PO SCH (21:16)
[2022-10-06] VITALS (7 sets, daily range): BP systolic 105–126; BP diastolic 60–65
[2022-10-06] MEDS: ALBUTEROL (0.083%) 2.5MG/3ML NEB HHN SCH ×4 (01:14→20:53)
[2022-10-06] MEDS: IPRATROPIUM BROMIDE (0.02%) 0.5MG/2.5ML NEB HHN SCH ×4 (01:14→20:53)
[2022-10-06] MEDS: METHYLPREDNISOLONE SOD SUCC 40 MG/ML VIAL IV SCH ×5 (01:16→23:39)
[2022-10-06] MEDS: TIZANIDINE HCL 2MG TABLET PO SCH ×5 (01:17→23:40)
[2022-10-06] MEDS: ACETYLCYSTEINE 200MG/ML 20% VIAL 4ML INH SCH ×3 (01:17→14:49)
[2022-10-06] MEDS: ACETAMINOPHEN 325MG TABLET PO SCH ×5 (01:18→23:40)
[2022-10-06] MEDS: GABAPENTIN 300MG CAPSULE PO SCH ×5 (01:18→23:40)
[2022-10-06] MEDS: OXYCODONE HCL 5MG TABLET PO SCH ×5 (01:19→23:41)
[2022-10-06] MEDS: BENZONATATE 100MG CAPSULE PO SCH ×3 (05:58→21:28)
[2022-10-06] MEDS: INSULIN LISPRO 100 UNITS/ML SUBCUT SCH ×4 (05:59→20:22)
[2022-10-06] MEDS: BLOOD SUGAR DIAGNOSTIC STRIP TEST SCH ×4 (05:59→20:15)
[2022-10-06 06:24] LABS: HEMOGLOBIN 13.6 g/dL (12.0-16.0); MEAN CORPUSCULAR HEMOGLOBIN 28.7 pg (28.0-32.0); MEAN CORPUSCULAR VOLUME 88.8 fL (81.0-99.0); PLATELET 259 x1000/uL (130-400); RED BLOOD CELL COUNT 4.73 mill/uL (4.2-5.4); RED CELL DISTRIBUTION WIDTH 13.8 % (11.6-14.6)
[2022-10-06 07:02] LABS: CHLORIDE 102 mEq/L (98-107)
[2022-10-06 07:07] LABS: PHOSPHORUS 2.6 mg/dL (2.5-4.9)
[2022-10-06] MEDS ORDERED: SODIUM POLYSTYRENE SULFONATE 15 G/60 ML BOT PO SCH (07:45)
[2022-10-06] MEDS: AMLODIPINE 10MG TABLET PO SCH (08:09)
[2022-10-06] MEDS: DULOXETINE HCL 60MG DR CAPSULE PO SCH (08:21)
[2022-10-06] MEDS: DULOXETINE HCL 30MG DR CAPSULE PO SCH (08:21)
[2022-10-06] MEDS: METFORMIN HCL 500MG TABLET PO SCH ×2 (08:21→17:21)
[2022-10-06] MEDS: ENOXAPARIN 40MG/0.4ML SYR SUBCUT SCH (08:21)
[2022-10-06] MEDS ORDERED: GUAIFENESIN-DM 200MG-20MG/10ML UDC PO PRN (17:00)
[2022-10-06] MEDS: CEFTRIAXONE IV SCH (17:21)
[2022-10-06] MEDS: WATER IV SCH (17:21)
[2022-10-06] MEDS: DEXT 5% IV SCH (17:21)
[2022-10-06] MEDS: AZITHROMYCIN 250 MG in DEXT 5% WATER 250 ML IV SCH (18:05)
[2022-10-06] MEDS: GUAIFENESIN 600MG ER TABLET PO SCH (20:23)
[2022-10-06] MEDS: FAMOTIDINE 20MG TABLET PO SCH (20:23)
[2022-10-06] MEDS: INSULIN GLARGINE 100 UNITS/ML SUBCUT SCH (21:28)
[2022-10-07] VITALS: BP 124/60
[2022-10-07] MEDS: ALBUTEROL (0.083%) 2.5MG/3ML NEB HHN SCH ×4 (00:19→21:20)
[2022-10-07] MEDS: IPRATROPIUM BROMIDE (0.02%) 0.5MG/2.5ML NEB HHN SCH ×4 (00:20→21:20)
[2022-10-07] MEDS: ACETYLCYSTEINE 200MG/ML 20% VIAL 4ML INH SCH ×3 (00:20→14:00)
[2022-10-07 04:00] VITALS: BP 123/64
[2022-10-07] MEDS: METHYLPREDNISOLONE SOD SUCC 40 MG/ML VIAL IV SCH (05:03)
[2022-10-07] MEDS: ACETAMINOPHEN 325MG TABLET PO SCH ×4 (05:26→23:37)
[2022-10-07] MEDS: BENZONATATE 100MG CAPSULE PO SCH ×3 (05:26→21:08)
[2022-10-07] MEDS: OXYCODONE HCL 5MG TABLET PO SCH ×4 (05:26→23:38)
[2022-10-07] MEDS: GABAPENTIN 300MG CAPSULE PO SCH ×4 (05:27→23:36)
[2022-10-07] MEDS: TIZANIDINE HCL 2MG TABLET PO SCH ×4 (05:27→23:37)
[2022-10-07] MEDS: BLOOD SUGAR DIAGNOSTIC STRIP TEST SCH ×4 (06:26→21:00)
[2022-10-07] MEDS: METFORMIN HCL 500MG TABLET PO SCH ×2 (06:27→17:42)
[2022-10-07] MEDS: INSULIN LISPRO 100 UNITS/ML SUBCUT SCH ×4 (06:28→21:07)
[2022-10-07 06:33] LABS: HEMATOCRIT. 39.6 % (36.0-48.0); HEMOGLOBIN. 12.7 g/dL (12.0-16.0); MEAN CORPUSCULAR HEMOGLOBIN 28.6 pg (28.0-32.0); MEAN CORPUSCULAR VOLUME 88.9 fL (81.0-99.0); MEAN PLATELET VOLUME 9.4 fl (7.4-10.4); PLATELET 248 x1000/uL (130-400); RED BLOOD CELL COUNT 4.45 mill/uL (4.2-5.4)
[2022-10-07 07:08] LABS: CHLORIDE 100 mEq/L (98-107)
[2022-10-07 07:13] LABS: PHOSPHORUS 3.4 mg/dL (2.5-4.9)
[2022-10-07 08:00] VITALS: BP 110/57
[2022-10-07] MEDS: GUAIFENESIN 600MG ER TABLET PO SCH ×2 (08:51→21:08)
[2022-10-07] MEDS: DULOXETINE HCL 60MG DR CAPSULE PO SCH (08:51)
[2022-10-07] MEDS: DULOXETINE HCL 30MG DR CAPSULE PO SCH (08:51)
[2022-10-07] MEDS: AMLODIPINE 10MG TABLET PO SCH (08:52)
[2022-10-07] MEDS: ENOXAPARIN 40MG/0.4ML SYR SUBCUT SCH (08:53)
[2022-10-07 12:00] VITALS: BP 153/66
[2022-10-07 16:00] VITALS: BP 121/61
[2022-10-07] MEDS: AZITHROMYCIN 250 MG in DEXT 5% WATER 250 ML IV SCH (17:43)
[2022-10-07] MEDS: DEXT 5% IV SCH (17:43)
[2022-10-07] MEDS: WATER IV SCH (17:43)
[2022-10-07] MEDS: CEFTRIAXONE IV SCH (17:43)
[2022-10-07] MEDS: METHYLPREDNISOLONE SOD SUCC 125 MG/2 ML VIAL IV SCH ×2 (17:43→23:34)
[2022-10-07] MEDS ORDERED: BISACODYL 10MG SUPP PR PRN (19:45)
[2022-10-07 20:00] VITALS: BP 118/62
[2022-10-07] MEDS: FAMOTIDINE 20MG TABLET PO SCH (21:08)
[2022-10-07] MEDS: INSULIN GLARGINE 100 UNITS/ML SUBCUT SCH (21:08)
[2022-10-08] MEDS: ALBUTEROL (0.083%) 2.5MG/3ML NEB HHN SCH ×4 (01:20→20:42)
[2022-10-08] MEDS: ACETYLCYSTEINE 200MG/ML 20% VIAL 4ML INH SCH ×2 (01:20→14:00)
[2022-10-08] MEDS: IPRATROPIUM BROMIDE (0.02%) 0.5MG/2.5ML NEB HHN SCH ×4 (01:20→20:42)
[2022-10-08 04:00] VITALS: BP 134/50
[2022-10-08 06:09] LABS: HEMATOCRIT. 40.4 % (36.0-48.0); HEMOGLOBIN. 13.3 g/dL (12.0-16.0); MEAN CORPUSCULAR HEMOGLOBIN 29.2 pg (28.0-32.0); MEAN CORPUSCULAR VOLUME 88.5 fL (81.0-99.0); MEAN PLATELET VOLUME 9.2 fl (7.4-10.4); PLATELET 262 x1000/uL (130-400); RED BLOOD CELL COUNT 4.56 mill/uL (4.2-5.4); RED CELL DISTRIBUTION WIDTH 13.9 % (11.6-14.6)
[2022-10-08] MEDS: GABAPENTIN 300MG CAPSULE PO SCH ×4 (06:18→23:43)
[2022-10-08] MEDS: BENZONATATE 100MG CAPSULE PO SCH ×3 (06:18→21:23)
[2022-10-08] MEDS: METFORMIN HCL 500MG TABLET PO SCH ×2 (06:18→17:09)
[2022-10-08] MEDS: TIZANIDINE HCL 2MG TABLET PO SCH ×4 (06:19→23:43)
[2022-10-08] MEDS: ACETAMINOPHEN 325MG TABLET PO SCH ×4 (06:20→23:43)
[2022-10-08] MEDS: INSULIN LISPRO 100 UNITS/ML SUBCUT SCH ×5 (06:20→21:25)
[2022-10-08] MEDS: OXYCODONE HCL 5MG TABLET PO SCH ×4 (06:20→23:44)
[2022-10-08] MEDS: BLOOD SUGAR DIAGNOSTIC STRIP TEST SCH ×4 (06:21→21:00)
[2022-10-08 08:00] VITALS: BP 114/57
[2022-10-08 08:16] LABS: CHLORIDE 103 mEq/L (98-107)
[2022-10-08 08:25] LABS: PHOSPHORUS 3.2 mg/dL (2.5-4.9)
[2022-10-08] MEDS: GUAIFENESIN 600MG ER TABLET PO SCH ×2 (09:06→21:24)
[2022-10-08] MEDS: DULOXETINE HCL 30MG DR CAPSULE PO SCH (09:06)
[2022-10-08] MEDS: DULOXETINE HCL 60MG DR CAPSULE PO SCH (09:06)
[2022-10-08] MEDS: METHYLPREDNISOLONE SOD SUCC 125 MG/2 ML VIAL IV SCH ×2 (09:06→21:23)
[2022-10-08] MEDS: AMLODIPINE 10MG TABLET PO SCH (09:06)
[2022-10-08] MEDS: ENOXAPARIN 40MG/0.4ML SYR SUBCUT SCH (09:07)
[2022-10-08 09:29] LABS: PLATELET ESTIMATE NORMAL
[2022-10-08] MEDS ORDERED: METF-414 PO (10:09)
[2022-10-08] MEDS ORDERED: BENZ100C86 PO (10:09)
[2022-10-08] MEDS ORDERED: DULO60CA45 PO (10:09)
[2022-10-08] MEDS ORDERED: TIZA-191 PO (10:09)
[2022-10-08] MEDS ORDERED: AMLO10TA80 PO (10:09)
[2022-10-08] MEDS ORDERED: P20 PO ×2 (10:09→11:38)
[2022-10-08] MEDS ORDERED: DULO30CA2 PO (10:09)
[2022-10-08] MEDS ORDERED: GABA-532 PO (10:09)
[2022-10-08] MEDS ORDERED: FLUT1DIS3 INH (11:40)
[2022-10-08 12:00] VITALS: BP 120/72
[2022-10-08 14:02] LABS: PLATELET ESTIMATE NORMAL
[2022-10-08 16:00] VITALS: BP 121/65
[2022-10-08] MEDS: DEXT 5% IV SCH (17:09)
[2022-10-08] MEDS: WATER IV SCH (17:09)
[2022-10-08] MEDS: CEFTRIAXONE IV SCH (17:09)
[2022-10-08] MEDS ORDERED: AZITHROMYCIN 250 MG TABLET PO SCH (18:00)
[2022-10-08 20:00] VITALS: BP 128/72
[2022-10-08] MEDS: FAMOTIDINE 20MG TABLET PO SCH (21:24)
[2022-10-08] MEDS ORDERED: INSULIN GLARGINE 100 UNITS/ML SUBCUT SCH (22:00)
[2022-10-09] VITALS: BP 133/60
[2022-10-09] MEDS: ALBUTEROL (0.083%) 2.5MG/3ML NEB HHN SCH ×4 (02:06→21:47)
[2022-10-09 04:00] VITALS: BP 124/72
[2022-10-09] MEDS: TIZANIDINE HCL 2MG TABLET PO SCH ×4 (05:22→21:59)
[2022-10-09] MEDS: GABAPENTIN 300MG CAPSULE PO SCH ×4 (05:23→22:00)
[2022-10-09] MEDS: BENZONATATE 100MG CAPSULE PO SCH ×3 (05:23→22:00)
[2022-10-09] MEDS: ACETAMINOPHEN 325MG TABLET PO SCH ×4 (05:23→22:00)
[2022-10-09] MEDS: OXYCODONE HCL 5MG TABLET PO SCH ×4 (05:24→22:01)
[2022-10-09] MEDS: BLOOD SUGAR DIAGNOSTIC STRIP TEST SCH ×4 (05:43→21:50)
[2022-10-09] MEDS: METFORMIN HCL 500MG TABLET PO SCH ×2 (06:10→17:29)
[2022-10-09] MEDS: INSULIN LISPRO 100 UNITS/ML SUBCUT SCH ×7 (06:11→22:08)
[2022-10-09 08:00] VITALS: BP 110/69
[2022-10-09] MEDS: IPRATROPIUM BROMIDE (0.02%) 0.5MG/2.5ML NEB HHN SCH ×3 (08:10→21:47)
[2022-10-09] MEDS: ACETYLCYSTEINE 200MG/ML 20% VIAL 4ML INH SCH ×2 (08:11→13:36)
[2022-10-09] MEDS: GUAIFENESIN 600MG ER TABLET PO SCH ×2 (08:55→21:59)
[2022-10-09] MEDS: DULOXETINE HCL 60MG DR CAPSULE PO SCH (08:56)
[2022-10-09] MEDS: AMLODIPINE 10MG TABLET PO SCH (08:56)
[2022-10-09] MEDS: METHYLPREDNISOLONE SOD SUCC 125 MG/2 ML VIAL IV SCH (08:56)
[2022-10-09] MEDS: DULOXETINE HCL 30MG DR CAPSULE PO SCH (08:56)
[2022-10-09] MEDS: ENOXAPARIN 40MG/0.4ML SYR SUBCUT SCH (08:57)
[2022-10-09 09:21] LABS: BASOPHILS % 0.1 % (0.0-2.0); HEMATOCRIT. 41.7 % (36.0-48.0); HEMOGLOBIN. 13.4 g/dL (12.0-16.0); LYMPHOCYTES % 8.5 % (20.0-50.0); MEAN CORPUSCULAR HEMOGLOBIN 28.6 pg (28.0-32.0); MEAN CORPUSCULAR VOLUME 88.9 fL (81.0-99.0); MEAN PLATELET VOLUME 8.7 fl (7.4-10.4); MONOCYTES % 4.3 % (2.0-8.0); NEUTROPHILS % 87.1 % (40.0-76.0); PLATELET 282 x1000/uL (130-400); RED BLOOD CELL COUNT 4.69 mill/uL (4.2-5.4); RED CELL DISTRIBUTION WIDTH 14.1 % (11.6-14.6)
[2022-10-09 09:50] LABS: CHLORIDE 98 mEq/L (98-107)
[2022-10-09 10:00] LABS: PHOSPHORUS 4.1 mg/dL (2.5-4.9)
[2022-10-09 12:00] VITALS: BP 139/61
[2022-10-09 16:00] VITALS: BP 135/62
[2022-10-09] MEDS: DEXT 5% IV SCH (17:29)
[2022-10-09] MEDS: WATER IV SCH (17:29)
[2022-10-09] MEDS: CEFTRIAXONE IV SCH (17:29)
[2022-10-09 20:00] VITALS: BP 128/65
[2022-10-09] MEDS: FAMOTIDINE 20MG TABLET PO SCH (21:59)
[2022-10-09] MEDS ORDERED: INSULIN GLARGINE 100 UNITS/ML SUBCUT SCH (22:00)
[2022-10-10] VITALS: BP 100/55
[2022-10-10] MEDS: IPRATROPIUM BROMIDE (0.02%) 0.5MG/2.5ML NEB HHN SCH (01:19)
[2022-10-10] MEDS: ALBUTEROL (0.083%) 2.5MG/3ML NEB HHN SCH (01:20)
[2022-10-10] MEDS: ACETYLCYSTEINE 200MG/ML 20% VIAL 4ML INH SCH (01:20)
[2022-10-10] MEDS: BLOOD SUGAR DIAGNOSTIC STRIP TEST SCH (06:19)
[2022-10-10] MEDS: OXYCODONE HCL 5MG TABLET PO SCH (06:27)
[2022-10-10] MEDS: GABAPENTIN 300MG CAPSULE PO SCH (06:27)
[2022-10-10] MEDS: BENZONATATE 100MG CAPSULE PO SCH (06:28)
[2022-10-10] MEDS: ACETAMINOPHEN 325MG TABLET PO SCH (06:28)
[2022-10-10] MEDS: TIZANIDINE HCL 2MG TABLET PO SCH (06:28)
[2022-10-10] MEDS: METFORMIN HCL 500MG TABLET PO SCH (06:29)
[2022-10-10] MEDS: INSULIN LISPRO 100 UNITS/ML SUBCUT SCH ×2 (06:43→06:44)
[2022-10-10 08:00] VITALS: BP 112/64
[2022-10-10] MEDS ORDERED: PREDNISONE 10MG TABLET PO SCH (08:00)
[2022-10-10] MEDS ORDERED: PREDNISONE 20MG TABLET PO SCH (08:00)
[2022-10-10] MEDS: ENOXAPARIN 40MG/0.4ML SYR SUBCUT SCH (08:45)
[2022-10-10] MEDS: GUAIFENESIN 600MG ER TABLET PO SCH (08:45)
[2022-10-10] MEDS: AMLODIPINE 10MG TABLET PO SCH (08:45)
[2022-10-10] MEDS: DULOXETINE HCL 60MG DR CAPSULE PO SCH (08:45)
[2022-10-10] MEDS: DULOXETINE HCL 30MG DR CAPSULE PO SCH (08:45)
[2022-10-10] MEDS ORDERED: METHYLPREDNISOLONE SOD SUCC 125 MG/2 ML VIAL IV SCH (09:00)
[2022-10-10 09:15] VITALS: BP 112/64
== END 2022-10-10 09:55 | disposition home health service (06) | DRG 193 ==
LOC: ER 10:50 → 7EST 18:47 → EDBEDREQTM 19:13 → EDBEDREQ 19:13 → ENRESERV 20:25
PROVIDERS: ADMIT Internal Medicine; ATTEND Internal Medicine
PROC: 5A09357 Assistance with Respiratory Ventilation, Less than 24 Consecutive Hours, Continuous Positive Airway Pressure (ICD-10-PCS; principal; 2022-10-07)
DX: J18.9 Pneumonia, unspecified organism (principal); E43 Unspecified severe protein-calorie malnutrition; J96.21 Acute and chronic respiratory failure with hypoxia; J44.1 Chronic obstructive pulmonary disease with (acute) exacerbation; E11.65 Type 2 diabetes mellitus with hyperglycemia; Z20.822 Contact with and (suspected) exposure to COVID-19; I10 Essential (primary) hypertension; G89.4 Chronic pain syndrome; E11.42 Type 2 diabetes mellitus with diabetic polyneuropathy; M48.00 Spinal stenosis, site unspecified; G47.33 Obstructive sleep apnea (adult) (pediatric); I25.10 Atherosclerotic heart disease of native coronary artery without angina pectoris; K59.00 Constipation, unspecified; F17.210 Nicotine dependence, cigarettes, uncomplicated; Z79.51 Long term (current) use of inhaled steroids; Z68.35 Body mass index [BMI] 35.0-35.9, adult; Z79.84 Long term (current) use of oral hypoglycemic drugs; Z85.44 Personal history of malignant neoplasm of other female genital organs; Z88.8 Allergy status to other drugs, medicaments and biological substances; Z86.16 Personal history of COVID-19; Z88.6 Allergy status to analgesic agent; Z99.81 Dependence on supplemental oxygen; Z90.710 Acquired absence of both cervix and uterus; Z23 Encounter for immunization; Z79.899 Other long term (current) drug therapy
CPT/HCPCS: 36415; 71045; 80048; 80053; 80305; 81003; 82962; 83036; 83605; 83735; 83880; 84100; 84132; 84145; 84484; 85025; 85027; 85379; 87426; 87804; 93005; 93306; 93970; 94640; 94644; 94660; 97162; 97166; 99285; J0456; J0696; J1650; J1815; J2920; J2930; J7030; J7060; J7512; J7608

== ENCOUNTER 2023-08-02 20:40 | Emergency (ER) | payer MEDICARE, MEDICAID ==
[~2023-08-02] VITALS: Ht 157.5 cm; Wt 79.0 kg
[~2023-08-02 20:40] MED LIST changes: +BENZ100C86 PO; -CYCL10TA21 PO; -DIAZ5TAB PO; +DULO30CA2 PO; +DULO60CA45 PO; +FLUT1DIS3 INH; -GABA-529 PO; +GABA-532 PO; -ISOS30TA91 PO; -LIDO700A15 TP; -PANT40TA51 MT; +TIZA-191 PO
[2023-08-02 21:09] VITALS: BP 155/57; PULSE 74; RESP 18; O2SAT 98
[2023-08-02] MEDS ORDERED: ACETAMINOPHEN 325MG TABLET PO ONE (22:30)
[2023-08-02] MEDS ORDERED: LIDO700A15 TP (23:44)
[2023-08-02] MEDS ORDERED: ACET-2708 MT (23:44)
[2023-08-03] MEDS ORDERED: ACETAMINOPHEN 325MG TABLET PO NR (00:15)
[2023-08-03 00:17] VITALS: TEMP 98.3
== END 2023-08-03 00:14 | disposition home or self-care (01) ==
LOC: ER 20:40
DX: M54.9 Dorsalgia, unspecified (principal); E11.9 Type 2 diabetes mellitus without complications; Z91.018 Allergy to other foods; Z88.5 Allergy status to narcotic agent; Z88.6 Allergy status to analgesic agent; Z88.8 Allergy status to other drugs, medicaments and biological substances; Z79.899 Other long term (current) drug therapy; Z98.890 Other specified postprocedural states
CPT/HCPCS: 99283

== ENCOUNTER 2024-06-22 19:34 | Emergency (ER) | payer MEDICARE, MEDICAID ==
[~2024-06-22] VITALS: Ht 167.6 cm; Wt 78.0 kg
[~2024-06-22 19:34] MED LIST changes: +ACET-2708 MT; +LIDO700A15 TP
[2024-06-22 19:49] VITALS: TEMP 97.8; O2SAT 98
[2024-06-22] MEDS: ACETAMINOPHEN 500MG TABLET PO ONE (23:58)
[2024-06-22] MEDS: LIDOCAINE 5% PATCH TOP SCH (23:59)
[2024-06-23] MEDS ORDERED: ACET-2708 MT (00:33)
[2024-06-23 01:26] VITALS: BP 144/82; PULSE 76; RESP 18; O2SAT 95
== END 2024-06-23 01:28 | disposition home or self-care (01) ==
LOC: ER 19:34
DX: M25.562 Pain in left knee (principal); J45.909 Unspecified asthma, uncomplicated; E11.9 Type 2 diabetes mellitus without complications; Z88.5 Allergy status to narcotic agent; Z88.8 Allergy status to other drugs, medicaments and biological substances; Z88.6 Allergy status to analgesic agent; Z79.899 Other long term (current) drug therapy; V49.9XXA Car occupant (driver) (passenger) injured in unspecified traffic accident, initial encounter; Y93.89 Activity, other specified; Y92.89 Other specified places as the place of occurrence of the external cause; Y99.8 Other external cause status
CPT/HCPCS: 73562; 99283